=== PATIENT | female | born 1965 | race Caucasian/White ===

== ENCOUNTER 2020-03-08 16:12 | Emergency (ER) | payer MEDICAID ==
[~2020-03-08] VITALS: Ht 175.3 cm; Wt 68.0 kg
[2020-03-08 16:22] VITALS: BP 152/96
[2020-03-08] MEDS ORDERED: LIDOCAINE 1%-EPI 1:100,000 20 ML VIAL ONE (17:05)
--- NOTE | 2020-03-08 18:05 | NUR ---
Patient discharged to home in stable condition. Written and verbal after care instructions given. Patient verbalizes understanding of instruction.
== END 2020-03-08 18:08 | disposition home or self-care (01) ==
LOC: ER 16:12
DX: S90.852A Superficial foreign body, left foot, initial encounter (principal); J45.909 Unspecified asthma, uncomplicated; W45.8XXA Other foreign body or object entering through skin, initial encounter; Y93.89 Activity, other specified; Y92.89 Other specified places as the place of occurrence of the external cause; Y99.8 Other external cause status
CPT/HCPCS: 10120; 73630; 99285; J3490

== ENCOUNTER 2020-10-29 12:24 | Emergency (ER) | payer MEDICAID ==
[~2020-10-29] VITALS: Ht 170.2 cm; Wt 74.8 kg
--- NOTE | 2020-10-29 13:18 | NUR ---
55 years old female alert oriented x4 walking to er c/o chest pain radiates to left shoulder back, non diaphoretic, no nausea, vomiting, reports poor appetite, place on monitor technician vital stable no acute distress.
[2020-10-29] MEDS ORDERED: KETOROLAC TROMETHAMINE 15 MG/ML VIAL ONE (13:40)
[2020-10-29 13:54] LABS: BASOPHILS % (AUTO) 0.4 % (0.0-2.0); EOSINOPHILS % (AUTO) 2.6 % (0.0-6.0); HEMATOCRIT 41 % (33-45); LYMPHOCYTES # (AUTO) 0.9 /CMM (0.8-4.8); LYMPHOCYTES % (AUTO) 13.7 % (20.0-44.0); MEAN CORPUSCULAR HGB CONC 34 g/dl (31.0-36.0); MEAN CORPUSCULAR VOLUME 96 fL (82-100); MONOCYTES # (AUTO) 0.5 /CMM (0.1-1.30); MONOCYTES % (AUTO) 8.5 % (2.0-12.0); NEUTROPHILS # (AUTO) 4.7 /CMM (1.8-8.9); NEUTROPHILS % (AUTO) 74.8 % (43.0-81.0); PLATELET COUNT (AUTO) 273 /CMM (150-450); WHITE BLOOD COUNT (AUTO) 6.3 K/uL (4.3-11.0)
[2020-10-29] MEDS ORDERED: LORAZEPAM INJ 2 MG/ML VIAL ONE (13:56)
[2020-10-29] MEDS ORDERED: IV NS 0.9% 1,000 ML BAG IV ONE (14:00)
[2020-10-29] MEDS ORDERED: KETOROLAC TROMETHAMINE INJ 30 MG/ML VIAL IV ONE (14:00)
[2020-10-29] MEDS ORDERED: LORAZEPAM INJ 2 MG/ML VIAL IV ONE (14:00)
[2020-10-29 14:02] LABS: CALCIUM, SERUM 9.3 mg/dL (8.5-10.1); CARBON DIOXIDE 28 mmol/L (21-32); CHLORIDE 102 mmol/L (98-107); GLUCOSE 130 mg/dL (74-106); POTASSIUM 3.6 mmol/L (3.5-5.1); SODIUM SERUM 138 mmol/L (136-145); UREA NITROGEN, BLOOD 14 mg/dL (7-18)
[2020-10-29 14:08] LABS: ALANINE AMINOTRANSFERASE 63 U/L (12-78); ALBUMIN 3.9 g/dL (3.4-5.0); ALKALINE PHOSPHATASE 88 U/L (46-116); ASPARTATE AMINOTRANSFERASE 58 U/L (15-37); BILIRUBIN,DIRECT 0.1 mg/dL (0.0-0.2); BILIRUBIN,TOTAL 0.6 mg/dL (0.2-1.0); LIPASE 59 U/L (73-393); TOTAL PROTEIN, SERUM 7.8 g/dL (6.4-8.2)
--- NOTE | 2020-10-29 15:01 | NUR ---
PATIENT A/OX4, AMBULATORY WITH STEADY GAIT, BREATHING EVEN AND UNLABORED, NO SOB NOTED. DENIES PAIN AT THIS TIME. IV removed. Catheter intact and site benign. Pressure and 4x4 applied to site. No bleeding noted.Patient discharged to home in stable condition. Written and verbal after care instructions given. Patient verbalizes understanding of instruction.
[2020-10-29 15:03] VITALS: BP 132/81
== END 2020-10-29 15:03 | disposition home or self-care (01) ==
LOC: ER 12:28
DX: R07.89 Other chest pain (principal); J45.909 Unspecified asthma, uncomplicated
CPT/HCPCS: 36415; 71045; 80048; 80076; 80320; 83690; 84484; 85025; 93005; 96361; 96374; 96375; 99285; J1885; J2060; J7030; G0480

== ENCOUNTER 2020-11-02 21:17 | Emergency (ER) | payer MEDICAID ==
[~2020-11-02] VITALS: Ht 175.3 cm; Wt 67.6 kg
[2020-11-02] MEDS ORDERED: HYDROCODONE/APAP 10/325MG TABLET PO ONE (22:30)
--- NOTE | 2020-11-02 22:30 | NUR ---
BIBS FOR C/O L UNDER BREAST AND BACK PAIN X 6 DAYS TO ER BED 11
[2020-11-02] MEDS ORDERED: HYDROCODONE/APAP 10/325MG TABLET ONE (22:43)
[2020-11-02] MEDS ORDERED: TRAM50TA2 PO (23:32)
[2020-11-03 00:29] VITALS: BP 126/76
--- NOTE | 2020-11-03 00:29 | NUR ---
Patient discharged to home in stable condition. Written and verbal after care instructions given. Patient verbalizes understanding of instruction.
== END 2020-11-03 00:30 | disposition home or self-care (01) ==
LOC: ER 21:20
DX: M54.10 Radiculopathy, site unspecified (principal); J45.909 Unspecified asthma, uncomplicated
CPT/HCPCS: 72074-TC

== ENCOUNTER 2021-09-16 23:06 | Inpatient (IN) | payer MEDICAID ==
[~2021-09-16] VITALS: Ht 175.3 cm; Wt 65.8 kg
[~2021-09-16 23:06] MED LIST: TRAM50TA2 PO
[2021-09-16] MEDS ORDERED: methylPREDNISolone SOD SUCC 125 MG/2ML VIAL ONE (23:10)
[2021-09-16] MEDS ORDERED: EPINEPHRINE (1:1000) 1 MG/ML AMPUL ONE (23:10)
[2021-09-16] MEDS ORDERED: Magnesium 1GM/D5W 100ML PREMIX 200 ML IV ONE ×2 (23:10→23:30)
[2021-09-16] MEDS ORDERED: ALBUTEROL FS 2.5 MG/3 ML VIAL.NEB ONE (23:11)
[2021-09-16] MEDS ORDERED: IPRATROPIUM NEB FS 0.5 MG/2.5 ML AMPUL.NEB ONE (23:11)
--- NOTE | 2021-09-16 23:12 | NUR ---
BIBRA78. ASTHMA EXACERBATION X 1 WEEK. SATTING 86% ON RA. GIVEN ALBUTEROL 5MG AND EPI0.5 IM BY EMS. ON CPAP SATTING @ 97%. PATIENT IN BED 05 ON MONITOR AND POX, AWAITING MD ALVARADO.
--- NOTE | 2021-09-16 23:13 | NUR ---
PATIENT ARRIVED WITH LINE ESTABLISHED AT LEFT HAND 20G INFUSING WELL.
--- NOTE | 2021-09-16 23:15 | NUR ---
RT @ [facility]
--- NOTE | 2021-09-16 23:16 | NUR ---
BLOOD AND CULTURES COLLECTED AND SENT TO LAB
--- NOTE | 2021-09-16 23:25 | NUR ---
COVID SWAB DONE AND SENT TO LAB
[2021-09-16 23:30] LABS: BASOPHILS # (AUTO) 0.1 K/uL (0.0-0.2); BASOPHILS % (AUTO) 0.6 % (0.0-2.0); HEMATOCRIT 45 % (33-45); HEMOGLOBIN 14.7 g/dL (11.5-14.8); LYMPHOCYTES # (AUTO) 3.4 K/uL (0.8-4.8); LYMPHOCYTES % (AUTO) 26.3 % (20.0-44.0); MEAN CORPUSCULAR HGB CONC 33 g/dl (31.0-36.0); MEAN CORPUSCULAR VOLUME 90 fL (82-100); MONOCYTES # (AUTO) 1.2 K/uL (0.1-1.30); MONOCYTES % (AUTO) 8.9 % (2.0-12.0); NEUTROPHILS # (AUTO) 7.6 K/uL (1.8-8.9); NEUTROPHILS % (AUTO) 59.2 % (43.0-81.0); PLATELET COUNT (AUTO) 348 K/uL (150-450); RED BLOOD CELL COUNT(AUTO) 4.98 MIL/uL (4.0-5.2); WHITE BLOOD COUNT (AUTO) 12.9 K/uL (4.3-11.0)
[2021-09-16] MEDS ORDERED: ALBUTEROL FS 2.5 MG/3 ML VIAL.NEB CONTNEB ONE (23:30)
[2021-09-16] MEDS ORDERED: methylPREDNISolone SOD SUCC 125 MG/2ML VIAL IV ONE (23:30)
[2021-09-16] MEDS ORDERED: IPRATROPIUM NEB FS 0.5 MG/2.5 ML AMPUL.NEB NEB ONE (23:30)
[2021-09-16] MEDS ORDERED: EPINEPHRINE (1:1000) 1 MG/ML AMPUL SUBCUT ONE (23:30)
[2021-09-16] MEDS ORDERED: TERBUTALINE SULFATE 1 MG/ML VIAL SQ ONE (23:30)
--- NOTE | 2021-09-16 23:45 | NUR ---
Beltran griffith in [facility] - 09/16/21 at 2346 by RODY PATIENT ARRIVED WITH A LINE ESTABLISHED AT L HAND 18G INFUSING WELL
--- NOTE | 2021-09-16 23:49 | NUR ---
PATIENT SATTING AT 100% MD AWARE RT @ BEDSIDE
[2021-09-16 23:58] LABS: ALANINE AMINOTRANSFERASE 22 U/L (12-78); ALBUMIN 4.3 g/dL (3.4-5.0); ALKALINE PHOSPHATASE 109 U/L (46-116); ASPARTATE AMINOTRANSFERASE 14 U/L (15-37); BILIRUBIN,DIRECT 0.1 mg/dL (0.0-0.2); BILIRUBIN,TOTAL 0.4 mg/dL (0.2-1.0); CALCIUM, SERUM 9.5 mg/dL (8.5-10.1); CARBON DIOXIDE 30 mmol/L (21-32); CHLORIDE 104 mmol/L (98-107); GLUCOSE 159 mg/dL (74-106); POTASSIUM 5.3 mmol/L (3.5-5.1); SODIUM SERUM 140 mmol/L (136-145); TOTAL PROTEIN, SERUM 8.1 g/dL (6.4-8.2); UREA NITROGEN, BLOOD 17 mg/dL (7-18)
[2021-09-17] VITALS (25 sets, daily range): BP systolic 77–114; BP diastolic 50–79
--- NOTE | 2021-09-17 00:16 | NUR ---
MINDY SOMMERS HOSPITALIST @ BEDSIDE
[2021-09-17] MEDS ORDERED: ACETAMINOPHEN 325 MG TABLET PO PRN (00:30)
[2021-09-17] MEDS ORDERED: ONDANSETRON HCL/PF 4 MG/2 ML VIAL IVP PRN (00:30)
[2021-09-17] MEDS ORDERED: Z GUARD REMEDY 4 OZ OINT TP PRN (00:30)
[2021-09-17] MEDS ORDERED: ALBUTEROL FS 2.5 MG/3 ML VIAL.NEB NEB PRN (00:30)
[2021-09-17] MEDS ORDERED: MAGNESIUM HYDROXIDE 30 ML UDC PO PRN (00:30)
[2021-09-17] MEDS ORDERED: HYDROCODONE/APAP 5/325MG TABLET PO PRN (00:30)
[2021-09-17] MEDS ORDERED: TERBUTALINE SULFATE 1 MG/ML VIAL ONE (00:30)
[2021-09-17] MEDS ORDERED: MAG HYDROX/AL HYDROX/SIMETH 30 ML UDC PO PRN (00:30)
[2021-09-17] MEDS ORDERED: IV NS 0.9% 1,000 ML IV PRN (00:30)
[2021-09-17] MEDS ORDERED: IPRATROPIUM NEB FS 0.5 MG/2.5 ML AMPUL.NEB NEB PRN (00:30)
[2021-09-17] MEDS ORDERED: MORPHINE SULFATE INJ 2 MG/ML DISP.SYRIN IV PRN (00:30)
[2021-09-17 00:36] LABS: ABG BASE EXCESS -8.1 mmol/L; ABG PCO2 49.2 mmHg (35.0-45.0); ABG PH 7.222 (7.350-7.450); ABG PO2 68.8 mmHg (75.0-100.0); COHb 0.2 % (0.5-1.5); MetHb 0.3 % (0.0-1.5); O2Hb 90.4 % (94.0-97.0); SITE, ABG Right Radial; VENT MODE, BG RA
--- NOTE | 2021-09-17 01:14 | NUR ---
UPDATED FAMILY ON PATIENTS CONDITION.
--- NOTE | 2021-09-17 02:04 | NUR ---
PATIENT RESTING COMFORTABLY NO COMPLAINTS AT THIS TIME.
--- NOTE | 2021-09-17 02:46 | NUR ---
REPORT GIVEN TO YESSI GUERRERO
--- NOTE | 2021-09-17 03:00 | NUR ---
ICU/WORKDAY CONSULTANT RECIEVED REPORT FROM ER NURSE
--- NOTE | 2021-09-17 03:20 | NUR ---
PATIENT TRANSFERRED UNDER ACLS.
--- NOTE | 2021-09-17 03:30 | NUR ---
ICU/INK MAKER PT WAS ABLE TO AMBULATE TO BED. PT PLACED ON MONITOR. CALL LIGHT WITHIN REACH
[2021-09-17] MEDS ORDERED: IV NS 0.9% 500 ML IV ONE ×3 (04:00→04:30)
--- NOTE | 2021-09-17 04:05 | NUR ---
ICU/WORKPLACE TRAINER AND ASSESSOR MINDY MADE AWARE OF LOW BP, SAID TO BOLUS PT 1 LITER. NO OTHER MEDICATION AT THIS TIME. SAID PT WAS DEHYDRATED. CHARGE NURSE MADE AWARE.
[2021-09-17] MEDS: ENOXAPARIN SODIUM 40 MG/0.4 ML DISP.SYRIN SQ SCH ×2 (04:15→21:15)
[2021-09-17] MEDS: IV NS 0.9% 1,000 ML IV PRN ×2 (04:27→15:39)
--- NOTE | 2021-09-17 04:38 | NUR ---
ICU/SUPERVISOR BUFFING AND PASTING MRSA NARES DONE, SENT TO LAB
[2021-09-17] MEDS ORDERED: methylPREDNISolone SOD SUCC 125 MG/2ML VIAL IV SCH ×2 (05:00→08:00)
--- NOTE | 2021-09-17 05:10 | NUR ---
ICU/DIRECTOR OF MIDWIFERY/STAFF MIDWIFE PT GOT STEROIDS AT MIDNIGHT, PHARMACY CALLED TO HAVE THIS RESCHEDULE TO MATCH THE TIME ORDERED BY MD WHICH WOULD BE AT 0800.
--- NOTE | 2021-09-17 06:00 | NUR ---
ICU/MANAGER ATHLETICS BLOOD PRESSURE SLOWLY COMING UP.
--- NOTE | 2021-09-17 07:30 | NUR ---
OPENING NOTE: REPORT RECEIVED FROM YOLANDA LINO. ORDERS AND LABS REVIEWED DURING REPORT. PT ALERT OX4. C/O SOB, 2L NC SATTING 98%. PT ABLE TO MOVE INDEPENEDENTLY IN BED. NS INFUSING PER MD ORDERS AT 100ML/HR WITHOUT DIFFICULTY. PT CHECKED ON HOURLY AND PRN BY NURSING STAFF.
[2021-09-17] MEDS: IPRATROPIUM NEB FS 0.5 MG/2.5 ML AMPUL.NEB NEB SCH ×5 (07:41→23:19)
[2021-09-17] MEDS: ALBUTEROL FS 2.5 MG/0.5 ML VIAL.NEB NEB SCH ×5 (07:41→23:19)
[2021-09-17] MEDS: PANTOPRAZOLE 40 MG TABLET.DR PO SCH (07:51)
[2021-09-17] MEDS ORDERED: ALBU90AE2 INH (07:55)
[2021-09-17] MEDS ORDERED: MONT10TA22 PO (07:55)
[2021-09-17] MEDS ORDERED: FLUT12AE3 INH (08:41)
[2021-09-17 09:18] LABS: BASOPHILS % (AUTO) 0.1 % (0.0-2.0); EOSINOPHILS % (AUTO) 0.1 % (0.0-6.0); HEMATOCRIT 36 % (33-45); HEMOGLOBIN 12.2 g/dL (11.5-14.8); LYMPHOCYTES # (AUTO) 0.2 K/uL (0.8-4.8); LYMPHOCYTES % (AUTO) 3.2 % (20.0-44.0); MEAN CORPUSCULAR HGB CONC 34 g/dl (31.0-36.0); MEAN CORPUSCULAR VOLUME 89 fL (82-100); MONOCYTES # (AUTO) 0.1 K/uL (0.1-1.30); MONOCYTES % (AUTO) 1.4 % (2.0-12.0); NEUTROPHILS % (AUTO) 95.2 % (43.0-81.0); PLATELET COUNT (AUTO) 211 K/uL (150-450); RED BLOOD CELL COUNT(AUTO) 4.09 MIL/uL (4.0-5.2); WHITE BLOOD COUNT (AUTO) 5.2 K/uL (4.3-11.0)
[2021-09-17 09:36] LABS: ALBUMIN 3.2 g/dL (3.4-5.0); BILIRUBIN,TOTAL 0.3 mg/dL (0.2-1.0); CALCIUM, SERUM 8.2 mg/dL (8.5-10.1); CREATININE 1.2 mg/dL (0.6-1.3); POTASSIUM 4.3 mmol/L (3.5-5.1); TOTAL PROTEIN, SERUM 6.7 g/dL (6.4-8.2)
--- NOTE | 2021-09-17 09:43 | NUR ---
CRITICAL LAB RESULT RECEIVED: LACTIC ACID 5.2. DR SHAH NOTIFIED.
[2021-09-17 10:36] LABS: ABG BASE EXCESS -3.6 mmol/L; ABG OXYGEN SATURATION 94.2 % (92.0-98.5); ABG PCO2 34.2 mmHg (35.0-45.0); ABG PH 7.395 (7.350-7.450); ABG PO2 69.6 mmHg (75.0-100.0); AaDO2 89.7 mmHg; COHb 0.5 % (0.5-1.5); MetHb 0.2 % (0.0-1.5); O2Hb 93.5 % (94.0-97.0); SITE, ABG Right Radial; VENT MODE, BG N/ C
[2021-09-17] MEDS: LEVOFLOXACIN (250MG) 250 MG TABLET PO SCH (11:45)
[2021-09-17] MEDS: ALBUTEROL HALF STRENGTH 1.25 MG/3 ML VIAL.NEB NEB PRN ×2 (15:31→18:05)
[2021-09-17] MEDS: methylPREDNISolone SOD SUCC 125 MG/2ML VIAL IV SCH ×2 (16:06→23:16)
--- NOTE | 2021-09-17 16:25 | NUR ---
MS RN NOTES: RECEIVED PT FROM ICU AWAKE, ALERT ORIENTED X 4,CONTINUE TO SAY SHE HAS HARD TIME TO BREATH, O2 SAT 95%, hr 103, ON OXYGEN VIA NASAL CANNULA AT 2L/MIN, SKIN INTACT, DENIED ANY PAIN OR DISCOMFORT, BED IN LOW AND LOCKED POSITION, R HAND iV LINE INTACT RUNNING WITH NORMAL SALINE AT 100 ML/HR, WILL MONITOR THE PT
--- NOTE | 2021-09-17 16:25 | NUR ---
PT TRANSFERRED TO M/S ROOM 119-1 AT 1625 VIA BED, ACCOMPANIED BY M/S RN AND OUTBOUND SUPERVISOR WITH ALL BELONGINGS AND MEDICATIONS. BEDSIDE REPORT GIVEN IN ICU.
[2021-09-17] MEDS: ALPRAZOLAM 0.25 MG TABLET PO PRN (17:50)
--- NOTE | 2021-09-17 18:00 | NUR ---
RN NOTES: PT CONTINUE TO VERBALIZE SHE FEELS ANXIOUS AND REQUEST MEDICINE TO HELP HER ANXIETY WHICH WILL HELP HER BREATHING WELL, CALLED DR FRENCH WITH ORDER OF XANAX NEEDED EVERY 8 HOURS, ORDER NOTED AND CARRIED OUT, DOSE GIVEN ORDERED
--- NOTE | 2021-09-17 19:33 | NUR ---
RN CLOSING NOTES: PT IN BED AWAKE, ALERT, ORIENTED X 4, CONTINUE O2 AT 2L/MIN,NO PAIN OR DICOMFORT,CONTINUE IV FLUID ORDERED,BED KEPT IN LOW AND LOCKED POSITION WILL CONTINUE TO MONITOR
--- NOTE | 2021-09-17 20:00 | NUR ---
RN NOTES ASTHMA EXACERBATION, RECEIVED PATIENT IN BED, HIGH FOWLERS, ALERT/ORIENTED X4, ANXIOUS, REPORTED SHORTNESS OF BREATH, EXPIRATORY WHEEZING, 2LPM VIA NC, SPO2 96%, GENERALIZED WEAKNESS, CONTINENT OF BOWEL AND BLADDER, PREFERS BSC. KEPT SAFE, WILL CONTINUE TO MONITOR.
[2021-09-17] MEDS: MONTELUKAST SODIUM (10MG) 10 MG TABLET PO SCH (21:16)
--- NOTE | 2021-09-17 23:50 | NUR ---
PATIENT HAS INSPIRATORY AND EXPIRATORY WHEEZING, 3LPM VIA NC, SPO2 96%, BREATHING TREATMENT Q4HRS AND STEROIDS, COMPLAINING OF DIFFICULTY AND TIGHT BREATHING, NOTIFIED HOME ENERGY INSPECTOR [place], NO NEW ORDER, WILL CONTINUE TO MONITOR PATIENT.
[2021-09-18] MEDS: ALPRAZOLAM 0.25 MG TABLET PO PRN ×2 (02:17→22:08)
[2021-09-18] MEDS: ALBUTEROL FS 2.5 MG/0.5 ML VIAL.NEB NEB SCH ×7 (02:47→21:05)
[2021-09-18] MEDS: IPRATROPIUM NEB FS 0.5 MG/2.5 ML AMPUL.NEB NEB SCH ×7 (02:47→21:05)
[2021-09-18 04:00] VITALS: BP 92/65
[2021-09-18] MEDS: IV NS 0.9% 1,000 ML IV PRN ×2 (05:20→15:28)
--- NOTE | 2021-09-18 06:35 | NUR ---
ALERT/ORIENTED X4, 2LPM VIA NC, SPO2 96%. ASTHMA EXACERBATION, BREATHING TREATMENT Q4HRS, VENTOLIN PRN, XANAX FOR ANXIETY, CONTINUE SOLU-MEDROL Q8HRS. PER DR. FRENCH WILL NEED PULMONARY FUNCTION TEST, RESPIRATORY ALLERGY PANEL, CHEST CT, 6-MINUTE WALK OUTPATIENT.
[2021-09-18 07:08] LABS: HEMATOCRIT 35 % (33-45); HEMOGLOBIN 12.1 g/dL (11.5-14.8); LYMPHOCYTES # (AUTO) 0.5 K/uL (0.8-4.8); LYMPHOCYTES % (AUTO) 4.4 % (20.0-44.0); MEAN CORPUSCULAR HGB CONC 34 g/dl (31.0-36.0); MEAN CORPUSCULAR VOLUME 89 fL (82-100); MONOCYTES # (AUTO) 0.3 K/uL (0.1-1.30); MONOCYTES % (AUTO) 2.6 % (2.0-12.0); NEUTROPHILS # (AUTO) 9.6 K/uL (1.8-8.9); PLATELET COUNT (AUTO) 237 K/uL (150-450); RED BLOOD CELL COUNT(AUTO) 3.97 MIL/uL (4.0-5.2); WHITE BLOOD COUNT (AUTO) 10.3 K/uL (4.3-11.0)
--- NOTE | 2021-09-18 07:30 | NUR ---
MS RN AM NOTES PT IN BED, AO X 4, ON 2LPM VIA NC, O2 SAT 97%, MILD ANXIETY, NO DISTRESS, RESPIRATION UNLABORED, HIGH FOWLERS, WHEEZING BILAT LUNG FIELD, LEFT WRIST 18G WITH NS AT 100 ML/HR INFUSING WELL, RFA 18G FLUSHES WELL, BOTH SITES CLEAR. USES BSC, UNABLE TO TOLERATE LONG STANDING AND AMBULATION. SOFT DIET. POC DISCUSSED, VERBALIZED UNDERSTANDING. SAFETY MEASURES IN PLACE. BED LOW LOCKED. CALL LIGHT WITHIN REACH. WILL CONT TO MONITOR
[2021-09-18 07:35] LABS: ALBUMIN 3.2 g/dL (3.4-5.0); BILIRUBIN,TOTAL 0.2 mg/dL (0.2-1.0); CALCIUM, SERUM 8.6 mg/dL (8.5-10.1); CREATININE 0.8 mg/dL (0.6-1.3); MAGNESIUM 2.2 mg/dL (1.8-2.4); PHOSPHORUS 3.2 mg/dL (2.5-4.9); POTASSIUM 4.2 mmol/L (3.5-5.1); TOTAL PROTEIN, SERUM 6.5 g/dL (6.4-8.2)
[2021-09-18 07:40] LABS: THYROID STIMULATING HORMONE 0.185 uIU/mL (0.358-3.74)
[2021-09-18] MEDS: PANTOPRAZOLE 40 MG TABLET.DR PO SCH (07:55)
[2021-09-18] MEDS: methylPREDNISolone SOD SUCC 125 MG/2ML VIAL IV SCH ×3 (07:55→23:42)
[2021-09-18 08:00] VITALS: BP 104/72
--- NOTE | 2021-09-18 09:30 | NUR ---
RN NOTES DUE MEDS GIVEN
[2021-09-18] MEDS: LEVOFLOXACIN (250MG) 250 MG TABLET PO SCH (11:45)
--- NOTE | 2021-09-18 13:34 | NUR ---
RN NOTES BLOOD CULTURE RESULT RELAYED TO DR. SHAH - GRAM + COCCI IN CLUSTERS. NNO
[2021-09-18 16:00] VITALS: BP 112/73
--- NOTE | 2021-09-18 18:40 | NUR ---
MS RN CLOSING NOTES PT IN BED, RESTING AO X 4, ON 2LPM VIA NC, O2 SAT 97%, NO DISTRESS, RESPIRATION UNLABORED, HIGH FOWLERS, WHEEZING BILAT LUNG FIELD, LEFT WRIST 18G WITH NS AT 100 ML/HR INFUSING WELL, RFA 18G FLUSHES WELL, BOTH SITES CLEAR. USES BSC, UNABLE TO TOLERATE LONG STANDING AND AMBULATION. SOFT DIET. SAFETY MEASURES IN PLACE. BED LOW LOCKED. ALL NEEDS MET FOR NOW. PM CARE DONE EARLIER. CALL LIGHT WITHIN REACH. WILL ENDORSE TO NEXT SHIFT FOR JOSS.
[2021-09-18 20:00] VITALS: BP 125/70
--- NOTE | 2021-09-18 20:00 | NUR ---
RN NOTE PT AWAKE, ALERT ORIENTED X4. ON HIGH FOWLERS WITH O2 VIA NC AT 2L. PT COMPLAINED OF MILD SHORTNESS OF BREATH, NOT IN ANY DISTRESS. O2 SAT AT 97%. NS RUNNING AT 100ML/HR, INFUSING WELL ON L. WRIST. WILL CONTINUE TO MONITOR. CALL LIGHT WITHIN REACH.
--- NOTE | 2021-09-18 21:20 | NUR ---
RN NOTE PT RECEIVING BREATHING TX, WITH RT AT BEDSIDE. COMPLAINED OF SHORTNESS OF BREATH, SITTING UPRIGHT, TACHYPNEIC, RELAXATION & DEEP BREATHING TECHNIQUES GIVEN. BREATHING IMPROVED. NO CHANGES IN LOC. WILL CONTINUE TO MONITOR.
[2021-09-18] MEDS: MONTELUKAST SODIUM (10MG) 10 MG TABLET PO SCH (21:46)
[2021-09-18] MEDS: ENOXAPARIN SODIUM 40 MG/0.4 ML DISP.SYRIN SQ SCH (21:47)
--- NOTE | 2021-09-18 22:53 | NUR ---
RT CHECKED ON PT HR 97, SPO2 97. NO RESPIRATORY DISTRESS AT THIS TIME. PT ASKED FO NEB TX IN ONE HOUR.
--- NOTE | 2021-09-18 23:07 | NUR ---
RN NOTE PT REQUESTED FOR SLEEPING MEDICATION. NOTIFIED SAW RUNNER PRESLEY SOMMERS, ORDERED RESTORIL 15MG PO QHS PRN SLEEP.
[2021-09-19] VITALS (8 sets, daily range): BP systolic 101–148; BP diastolic 62–92
[2021-09-19] MEDS: ALBUTEROL FS 2.5 MG/0.5 ML VIAL.NEB NEB SCH ×8 (00:05→20:47)
[2021-09-19] MEDS: IPRATROPIUM NEB FS 0.5 MG/2.5 ML AMPUL.NEB NEB SCH ×8 (00:05→20:47)
--- NOTE | 2021-09-19 00:51 | NUR ---
RN NOTE PT SLEEPING WELL AT THIS TIME. NO SLEEPING MED GIVEN.
[2021-09-19] MEDS: IV NS 0.9% 1,000 ML IV PRN ×2 (01:48→12:08)
--- NOTE | 2021-09-19 06:51 | NUR ---
RN NOTE PT AWAKE, TOLERATES O2 AT 2L. NO DISTRESS NOTED. DENIES SOB OR ANY PAIN AT THIS TIME. PT STATED SHE FEELS A LITTLE BIT BETTER. NO CHANGES IN LOC NOTED. CONTINUE ON IVFLUID OF NS AT 100ML/HR, INFUSING WELL. NO S/SX OF INFILTRATION. PT CONTINENT, USES BEDSIDE COMMODE. COMPLAINED OF CONSTIPATION, MOM WAS GIVEN, NO BM AT THIS TIME. WILL ENDORSE TO NEXT SHIFT NURSE FOR JOSS.
[2021-09-19 07:01] LABS: HEMATOCRIT 35 % (33-45); HEMOGLOBIN 12.1 g/dL (11.5-14.8); LYMPHOCYTES # (AUTO) 0.3 K/uL (0.8-4.8); LYMPHOCYTES % (AUTO) 2.4 % (20.0-44.0); MEAN CORPUSCULAR HGB CONC 34 g/dl (31.0-36.0); MEAN CORPUSCULAR VOLUME 89 fL (82-100); MONOCYTES # (AUTO) 0.2 K/uL (0.1-1.30); MONOCYTES % (AUTO) 1.8 % (2.0-12.0); NEUTROPHILS # (AUTO) 12.1 K/uL (1.8-8.9); NEUTROPHILS % (AUTO) 95.8 % (43.0-81.0); PLATELET COUNT (AUTO) 234 K/uL (150-450); RED BLOOD CELL COUNT(AUTO) 3.98 MIL/uL (4.0-5.2); WHITE BLOOD COUNT (AUTO) 12.6 K/uL (4.3-11.0)
--- NOTE | 2021-09-19 07:30 | NUR ---
MS RN AM NOTES PT IN BED, AO X 4, ON 2LPM VIA NC, O2 SAT 96%, MILD ANXIETY, NO DISTRESS, RESPIRATION UNLABORED, HIGH FOWLERS, WHEEZING BILAT LUNG FIELD, LEFT WRIST 18G WITH NS AT 100 ML/HR INFUSING WELL, RAC 18G FLUSHES WELL, BOTH SITES CLEAR. USES BSC, UNABLE TO TOLERATE LONG STANDING AND AMBULATION. SOFT DIET. POC DISCUSSED, VERBALIZED UNDERSTANDING. SAFETY MEASURES IN PLACE. BED LOW LOCKED. CALL LIGHT WITHIN REACH. WILL CONT TO MONITOR
[2021-09-19 07:37] LABS: BILIRUBIN,TOTAL 0.2 mg/dL (0.2-1.0); CALCIUM, SERUM 8.3 mg/dL (8.5-10.1); CREATININE 0.8 mg/dL (0.6-1.3)
[2021-09-19] MEDS: PANTOPRAZOLE 40 MG TABLET.DR PO SCH (07:57)
[2021-09-19] MEDS: methylPREDNISolone SOD SUCC 125 MG/2ML VIAL IV SCH ×3 (08:07→21:20)
--- NOTE | 2021-09-19 09:30 | NUR ---
RN NOTES DUE MEDS GIVEN
[2021-09-19 09:37] LABS: ALBUMIN 3.2 g/dL (3.4-5.0); POTASSIUM 3.8 mmol/L (3.5-5.1); TOTAL PROTEIN, SERUM 6.6 g/dL (6.4-8.2)
[2021-09-19] MEDS: LEVOFLOXACIN (250MG) 250 MG TABLET PO SCH (11:06)
--- NOTE | 2021-09-19 17:18 | NUR ---
YESSI TARIQ PATIENT ANXIOUS AND STATED SHE CANT BREATH ON 2L O2 NASAL CANULA O2 SAT AT 95%. DR. SHAH NOTIFIED PRIOR TO THIS AND ORDERED TO CONTINUE WITH SOLUMEDROL 125MG IV Q8 HOURS. LAST GIVEN WAS AT 1711.
--- NOTE | 2021-09-19 17:24 | NUR ---
RN NOTES PATIENT IN DISTRESS, LABORED BREATHING. PLACED ON NRM 15L. O2 SAT AT 96% BUT IS TACHYPNEIC AND DIAPHORETIC. RAPID RESPONSE ACTIVATED.
--- NOTE | 2021-09-19 18:00 | NUR ---
RAPID RESPONSE: 1724 - RAPID RESPONSE ACTIVATED, BP 150/88. HR 150s, O2 SAT 96% ON NRM 15L O2 1726 - RAPID RESPONSE TEAM ON SITE. [facility] ICU CN, GUILLERMO CIRO CN, MARYJANE HARPER RN, GRACIE RN, ABEL RN, JACOBY RT, SILVIA RT, GOOD RT, JENNIFER RT - O2 SAT 99%, HR 149. 1728 - BLOOD SUGAR 174 1730 - INFORMED DR. FRENCH AND DR. SHAH 1733 - BREATHING TREATMENT + NRM 1734 - O2 SAT 99%, ABG ORDERED STAT 1738 - ABG TAKEN HR 148 1742 - DR SHAH ACKNOWLEDGED AND AWAITING FOR ABG RESULT, HR 153 1745 - DR. FRENCH ORDERED FOR BIPAP 174 - BIPAP IN ROOM 175 - BIPAP + BREATHING TREATMENT IN PLACE. 175 - ABG RESULT FORWARDED TO DR. SHAH AND DR. FRENCH 175 - ORDERED TO GO TO ICU. END OF RAPID RESULT. - BP 148/92 O2 SAT 100% TEMP 97.3 RR 24
--- NOTE | 2021-09-19 18:10 | NUR ---
PT IS AWAKE AND FOLLOW COMMANDS PLACED INTO BIPAP DUE TO INCREASED WORK OF BREATHING. BIPAP SETTINGS BELOW ORDERED: 18 IPAP 5 EPAP RATE 16 FIO2 30% BREATH SOUNDS DIMINISHED TO WHEEZING BILATERAL. BREATHING TREATMENT GIVEN VIA INLINE. SPO2 100% RR 32 BPM HR 92 bpm Addendum: 09/19/21 at 1815 by JENNIFER BELTRAN RT Amended: Links added.
--- NOTE | 2021-09-19 19:05 | NUR ---
RT NOTE PT RECEIVED ON BIPAP WITH CURRENT SETTINGS OF 18/5, 16, 30%. PT SEEMS TO BE TOLERATING WELL. NO DISTRESS NOTED AT THIS TIME. WILL DRAW ABG @ 1999. WILL CONTINUE TO MONITOR CLOSELY.
--- NOTE | 2021-09-19 19:12 | NUR ---
RN NOTES PATIENT TRANSFERRED T0 ICU 259. REPORT GIVEN TO ED FUNERAL HOME ASSOCIATE.
[2021-09-19 20:14] LABS: ABG BASE EXCESS -2.2 mmol/L; ABG PCO2 40.2 mmHg (35.0-45.0); ABG PH 7.372 (7.350-7.450); MetHb 0.4 % (0.0-1.5); O2Hb 97.2 % (94.0-97.0); SITE, ABG Left Brachial
--- NOTE | 2021-09-19 20:15 | NUR ---
RT NOTE PT REMOVED OFF BIPAP POST ABG RESULTS. SCHEDULER CONVEYOR AWARE. PT PLACED ON 28% NASAL CANNULA. NO RESPIRATORY DISTRESS NOTED AT THIS TIME. WILL MONITOR.
--- NOTE | 2021-09-19 21:10 | NUR ---
RT NOTE PT PLACED BACK ON BIPAP DUE TO INCREASED WOB. WILL CONTINUE TO MONITOR CLOSELY.
[2021-09-19] MEDS: ALPRAZOLAM 0.25 MG TABLET PO PRN (21:21)
[2021-09-19] MEDS: MONTELUKAST SODIUM (10MG) 10 MG TABLET PO SCH (21:21)
[2021-09-19] MEDS: ENOXAPARIN SODIUM 40 MG/0.4 ML DISP.SYRIN SQ SCH (21:21)
[2021-09-19] MEDS: TEMAZEPAM 15 MG CAPSULE PO PRN (22:08)
[2021-09-20] VITALS (24 sets, daily range): BP systolic 93–137; BP diastolic 59–96
[2021-09-20] MEDS: ALBUTEROL FS 2.5 MG/0.5 ML VIAL.NEB NEB SCH ×6 (00:49→15:41)
[2021-09-20] MEDS: IPRATROPIUM NEB FS 0.5 MG/2.5 ML AMPUL.NEB NEB SCH ×8 (00:49→23:07)
[2021-09-20] MEDS: ALPRAZOLAM 0.25 MG TABLET PO PRN ×2 (02:29→11:21)
--- NOTE | 2021-09-20 03:25 | NUR ---
SECRETARY ADMINISTRATIVE ASSISTANT PT IS AWAKE, ALERT, ORIENTED X 3, PLEASANT & COOPERATIVE, BUT VERY ANXIOUS @ TIMES. PT IS ON BIPAP 18/5 -16 30%, TOLERATES WELL. LUNGS SOUND DIMINISHED, BILATERAL WHEEZING. 02 SAT-96-98%. VSS, AFEBRILE, SCOPE-SR-ST. MEDICATED ORDERED. PT REQUESTED TWICE XANAX 0.25 MG PO FOR ANXIETY. URINE OUTPUT ADEQUATE. ASSISTED WITH ADL & BEDSIDE COMMODE. WILL CONTINUE CLOSE MONITORING.
[2021-09-20] MEDS: methylPREDNISolone SOD SUCC 125 MG/2ML VIAL IV SCH ×3 (04:42→21:24)
[2021-09-20] MEDS: IV NS 0.9% 1,000 ML IV PRN ×2 (04:42→14:43)
[2021-09-20 04:51] LABS: ALBUMIN 2.9 g/dL (3.4-5.0); BILIRUBIN,TOTAL 0.2 mg/dL (0.2-1.0); CALCIUM, SERUM 8.3 mg/dL (8.5-10.1); CREATININE 0.8 mg/dL (0.6-1.3); TOTAL PROTEIN, SERUM 6.1 g/dL (6.4-8.2)
--- NOTE | 2021-09-20 07:30 | NUR ---
RN OPENING NOTE PT OBSERVED IN BED SLEEPING. PT IS ON BIPAP WITH ALL PRESCRIBED SETTINGS TOLERATING WELL WITH NO SIGNS OF DISTRESS OR LABORED BREATHING SAT 96%. PT IS A/OX4. IV ACCES L FA AND R AC INFUSING WITH NS @100ML/HR. BED IS LOCKED IN LOWEST POSITION, CALL LIGHT IS WITHIN REACH AND ALL HOSPITAL SAFETY PROTOCOLS ARE IN PLACE WILL CONTINUE TO MONITOR THIS SHIFT.
[2021-09-20] MEDS: PANTOPRAZOLE 40 MG TABLET.DR PO SCH (07:47)
[2021-09-20] MEDS: MONTELUKAST SODIUM (10MG) 10 MG TABLET PO SCH ×2 (08:42→21:30)
[2021-09-20 08:47] LABS: BASOPHILS % (AUTO) 0.1 % (0.0-2.0); HEMATOCRIT 35 % (33-45); HEMOGLOBIN 11.8 g/dL (11.5-14.8); LYMPHOCYTES # (AUTO) 0.4 K/uL (0.8-4.8); LYMPHOCYTES % (AUTO) 4.5 % (20.0-44.0); MEAN CORPUSCULAR HGB CONC 34 g/dl (31.0-36.0); MEAN CORPUSCULAR VOLUME 89 fL (82-100); MONOCYTES # (AUTO) 0.4 K/uL (0.1-1.30); MONOCYTES % (AUTO) 4.6 % (2.0-12.0); NEUTROPHILS # (AUTO) 7.4 K/uL (1.8-8.9); NEUTROPHILS % (AUTO) 90.8 % (43.0-81.0); PLATELET COUNT (AUTO) 219 K/uL (150-450); RED BLOOD CELL COUNT(AUTO) 3.93 MIL/uL (4.0-5.2); WHITE BLOOD COUNT (AUTO) 8.2 K/uL (4.3-11.0)
[2021-09-20 09:02] LABS: ALBUMIN 3.1 g/dL (3.4-5.0); BILIRUBIN,TOTAL 0.3 mg/dL (0.2-1.0); CREATININE 0.8 mg/dL (0.6-1.3); TOTAL PROTEIN, SERUM 6.4 g/dL (6.4-8.2)
[2021-09-20 09:13] LABS: CALCIUM, SERUM 8.3 mg/dL (8.5-10.1)
[2021-09-20] MEDS: LEVOFLOXACIN (250MG) 250 MG TABLET PO SCH (11:21)
--- NOTE | 2021-09-20 18:47 | NUR ---
RN CLOSING NOTE PT IS SITTING UP IN BED WITH HOB >30 DEGREES. PT IS ON NC 3-4L SAT 98% TOLERATING WELL. PT IS A/OX4. IV ACCESS R FA INFUSING WITH NS @100ML/HR. BED IS LOCKED IN LOWEST POSITION, CALL LIGHT IS WITHIN REACH AND ALL HOSPITAL SAFETY PROTOCOLS ARE IN PLACE WILL ENDORSE TO OPERATIONS BOARDMAN NURSE FOR JOSS.
[2021-09-20] MEDS: ALBUTEROL FS 2.5 MG/3 ML VIAL.NEB NEB SCH ×2 (20:06→23:07)
--- NOTE | 2021-09-20 20:30 | NUR ---
ICU/CORPORATION PILOT PT IS HAVING SHORTNESS OF BREATH, SATURATION IS 98%. RT CALLED TO GIVE BREATHING TREATMENT. WILL MONITOR THIS PT.
--- NOTE | 2021-09-20 20:45 | NUR ---
ICU/CHANGE CONSULTANT PT PLACED ON BIPAP, PER PT'S REQUEST. WILL MONITOR THIS PT. BIPAP SETTINGS IS RATE 12, FIO2 30%, 18/5.
[2021-09-20] MEDS: ENOXAPARIN SODIUM 40 MG/0.4 ML DISP.SYRIN SQ SCH (21:25)
--- NOTE | 2021-09-20 22:45 | NUR ---
ICU/SIGNALS INTELLIGENCE SUPERINTENDENT PT APPEARS TO BE RESTING COMFORTABLE WITH BIPAP. WILL CONTINUE TO MONITOR THIS PT.
[2021-09-21] VITALS (24 sets, daily range): BP systolic 109–150; BP diastolic 38–96
[2021-09-21] MEDS: ALBUTEROL FS 2.5 MG/3 ML VIAL.NEB NEB SCH ×8 (02:18→23:45)
[2021-09-21] MEDS: IPRATROPIUM NEB FS 0.5 MG/2.5 ML AMPUL.NEB NEB SCH ×8 (02:18→23:45)
[2021-09-21] MEDS: IV NS 0.9% 1,000 ML IV PRN ×2 (03:14→14:46)
[2021-09-21] MEDS: methylPREDNISolone SOD SUCC 125 MG/2ML VIAL IV SCH ×3 (05:31→21:08)
[2021-09-21 05:44] LABS: ALBUMIN 3.1 g/dL (3.4-5.0); BILIRUBIN,TOTAL 0.3 mg/dL (0.2-1.0); CALCIUM, SERUM 8.5 mg/dL (8.5-10.1); CREATININE 0.9 mg/dL (0.6-1.3); POTASSIUM 4.3 mmol/L (3.5-5.1); TOTAL PROTEIN, SERUM 6.5 g/dL (6.4-8.2)
[2021-09-21 06:04] LABS: EOSINOPHILS % (AUTO) 0.1 % (0.0-6.0); HEMATOCRIT 36 % (33-45); LYMPHOCYTES # (AUTO) 0.3 K/uL (0.8-4.8); LYMPHOCYTES % (AUTO) 5.6 % (20.0-44.0); MEAN CORPUSCULAR HGB CONC 34 g/dl (31.0-36.0); MEAN CORPUSCULAR VOLUME 89 fL (82-100); MONOCYTES # (AUTO) 0.2 K/uL (0.1-1.30); NEUTROPHILS # (AUTO) 4.7 K/uL (1.8-8.9); NEUTROPHILS % (AUTO) 91.3 % (43.0-81.0); PLATELET COUNT (AUTO) 214 K/uL (150-450); RED BLOOD CELL COUNT(AUTO) 4.01 MIL/uL (4.0-5.2); WHITE BLOOD COUNT (AUTO) 5.2 K/uL (4.3-11.0)
--- NOTE | 2021-09-21 08:00 | NUR ---
rn notes Received patient in the bed on bipap, patient awake, getting breathings tx at this time., no acute distress, getting lethargic easily. patient using bedside commode. due medication administered. iv access on right fa intact infusing ns@100ml/hr intact. vss. tolerated breakfast fine self, call light within to reach. will follow up.
[2021-09-21] MEDS: PANTOPRAZOLE 40 MG TABLET.DR PO SCH (08:34)
[2021-09-21] MEDS: MONTELUKAST SODIUM (10MG) 10 MG TABLET PO SCH ×2 (08:37→21:08)
[2021-09-21] MEDS: ALPRAZOLAM 0.25 MG TABLET PO PRN (10:51)
--- NOTE | 2021-09-21 10:52 | NUR ---
RN NOTES PATIENT ANXIOUS, [id number] XANAX 0.25 MG PO PRN PER PATIENT REQUEST. ALSO ADMINISTERED SCHEDULED MEDICATION,. PATIENT ON O2NC 3L. INFUSING NS @100 ML/HR INTACT. ON RIGHT FA. CALL LIGHT WITHIN TO REACH. WILL FOLLOW UP.
[2021-09-21] MEDS: LEVOFLOXACIN (250MG) 250 MG TABLET PO SCH (11:01)
--- NOTE | 2021-09-21 13:30 | NUR ---
rn notes medication were administered for anxiety effective, patient calm. needs attended and anticipated, daughter next to the bed.
--- NOTE | 2021-09-21 18:28 | NUR ---
rn notes patient on O2-2llNC getting breathing treatment. no acute respiratory distress. daughter next to the bed. endorsed oncoming nurse savana.
--- NOTE | 2021-09-21 19:48 | NUR ---
RN NOTE PATIENT ALERT AND ORIENTED X4, ABLE TO MAKE NEEDS KNOWN. ON O2 3L VIA NASAL CANNULA. PATIENT COMPLAINING OF SHORTNESS OF BREATH AND REQUESTING FOR BIPAP, O2 SAT 97%. RT AT BEDSIDE AND PLACED PATIENT ON BIPAP. DENIES ANY PAIN AT THIS TIME. IV ACCESS ON RIGHT FOREARM #20 INFUSING NS @ 100ML/HR. NO S/S OF INFILTRATION. BED LOCKED AND IN LOWEST POSITION. CALL LIGHT WITHIN REACH. ALL NEEDS ANTICIPATED.
[2021-09-21] MEDS: ENOXAPARIN SODIUM 40 MG/0.4 ML DISP.SYRIN SQ SCH (21:09)
--- NOTE | 2021-09-21 22:00 | NUR ---
RN NOTE PATIENT PLACED BACK ON O2 2L VIA NASAL CANNULA PER REQUEST. O2 SAT 97%. WILL CONTINUE TO MONITOR.
[2021-09-22] VITALS (23 sets, daily range): BP systolic 105–149; BP diastolic 67–99
[2021-09-22] MEDS: IV NS 0.9% 1,000 ML IV PRN (00:41)
[2021-09-22] MEDS: ALBUTEROL FS 2.5 MG/3 ML VIAL.NEB NEB SCH ×8 (02:56→22:30)
[2021-09-22] MEDS: IPRATROPIUM NEB FS 0.5 MG/2.5 ML AMPUL.NEB NEB SCH ×8 (02:56→22:30)
[2021-09-22] MEDS: methylPREDNISolone SOD SUCC 125 MG/2ML VIAL IV SCH ×3 (04:32→21:20)
[2021-09-22 04:56] LABS: HEMATOCRIT 34 % (33-45); HEMOGLOBIN 11.6 g/dL (11.5-14.8); LYMPHOCYTES # (AUTO) 0.3 K/uL (0.8-4.8); LYMPHOCYTES % (AUTO) 6.1 % (20.0-44.0); MEAN CORPUSCULAR HGB CONC 34 g/dl (31.0-36.0); MEAN CORPUSCULAR VOLUME 90 fL (82-100); MONOCYTES # (AUTO) 0.2 K/uL (0.1-1.30); MONOCYTES % (AUTO) 4.4 % (2.0-12.0); NEUTROPHILS # (AUTO) 4.3 K/uL (1.8-8.9); NEUTROPHILS % (AUTO) 89.5 % (43.0-81.0); PLATELET COUNT (AUTO) 202 K/uL (150-450); RED BLOOD CELL COUNT(AUTO) 3.82 MIL/uL (4.0-5.2); WHITE BLOOD COUNT (AUTO) 4.8 K/uL (4.3-11.0)
[2021-09-22 06:20] LABS: ALBUMIN 2.8 g/dL (3.4-5.0); BILIRUBIN,TOTAL 0.2 mg/dL (0.2-1.0); CALCIUM, SERUM 8.1 mg/dL (8.5-10.1); CREATININE 0.8 mg/dL (0.6-1.3); POTASSIUM 3.7 mmol/L (3.5-5.1); TOTAL PROTEIN, SERUM 5.9 g/dL (6.4-8.2)
--- NOTE | 2021-09-22 06:40 | NUR ---
RN NOTE PATIENT RESTING IN BED. ON O2 2L VIA NASAL CANNULA. NO SIGNIFICANT CHANGES DURING THIS SHIFT. ALL NEEDS ATTENDED PROMPTLY. IV ACCESS ON RIGHT FOREARM #20 INFUSING NS @ 100ML/HR. NO S/S OF INFILTRATION. BED LOCKED AND IN LOWEST POSITION. CALL LIGHT WITHIN REACH. WILL ENDORSE TO AM SHIFT.
[2021-09-22 06:56] LABS: LYMPHOCYTES % (MANUAL) 5 % (16-48); MONOCYTES % (MANUAL) 5 % (0-11.0); NEUTROPHILS % (MANUAL) 90 (42-76)
[2021-09-22] MEDS: PANTOPRAZOLE 40 MG TABLET.DR PO SCH (08:26)
[2021-09-22] MEDS: MONTELUKAST SODIUM (10MG) 10 MG TABLET PO SCH ×2 (09:23→21:22)
[2021-09-22] MEDS: LEVOFLOXACIN (250MG) 250 MG TABLET PO SCH (11:51)
[2021-09-22] MEDS: PAROXETINE HCL 10 MG TABLET PO SCH (13:29)
--- NOTE | 2021-09-22 19:28 | NUR ---
RN NOTE PT RESTING IN BED, CONTINUES ON O2 VIA NC @2L, PT STILL NOTED WITH MILD LABORED BREATHING AND PRODUCTIVE COUGH. PT VERBALIZED SHE IS FEELING BETTER. ALL DUE MEDS GIVEN. HAD 1 BM AND ASSISTED TO TOILET THIS SHIFT. MORNING CARE DONE. SAFETY MEASURES MAINTAINED.
--- NOTE | 2021-09-22 19:30 | NUR ---
RN NOTE RECEIVED PT IN AWAKE, AOX4. ON O2 AT 2L VIA NC. NO LABORED BREATHING NOTED. STATED SHE FEELS OK. IV ON RFA PATENT AND INTACT, FLUSHES WELL. WILL CONTINUE TO MONITOR.
[2021-09-22] MEDS: ENOXAPARIN SODIUM 40 MG/0.4 ML DISP.SYRIN SQ SCH (21:00)
[2021-09-22] MEDS: TEMAZEPAM 15 MG CAPSULE PO PRN (21:22)
--- NOTE | 2021-09-22 21:33 | NUR ---
RN NOTE PT REFUSED LOVENOX INJECTION, EXPLAINED RISKS AND BENEFITS. VERBALIZED UNDERSTANDING.
--- NOTE | 2021-09-22 22:36 | NUR ---
PT REFUSED BIPAP. PT ON 2L NC. BIPAP STAND BY.
[2021-09-23] VITALS (16 sets, daily range): BP systolic 110–138; BP diastolic 75–94
[2021-09-23] MEDS: ALBUTEROL FS 2.5 MG/3 ML VIAL.NEB NEB SCH ×5 (01:10→13:12)
[2021-09-23] MEDS: IPRATROPIUM NEB FS 0.5 MG/2.5 ML AMPUL.NEB NEB SCH ×5 (01:10→13:12)
[2021-09-23 04:09] LABS: HEMATOCRIT 33 % (33-45); HEMOGLOBIN 11.2 g/dL (11.5-14.8); LYMPHOCYTES # (AUTO) 0.4 K/uL (0.8-4.8); LYMPHOCYTES % (AUTO) 6.2 % (20.0-44.0); MEAN CORPUSCULAR HGB CONC 34 g/dl (31.0-36.0); MEAN CORPUSCULAR VOLUME 89 fL (82-100); MONOCYTES # (AUTO) 0.4 K/uL (0.1-1.30); NEUTROPHILS # (AUTO) 5.4 K/uL (1.8-8.9); NEUTROPHILS % (AUTO) 87.8 % (43.0-81.0); PLATELET COUNT (AUTO) 200 K/uL (150-450); RED BLOOD CELL COUNT(AUTO) 3.73 MIL/uL (4.0-5.2); WHITE BLOOD COUNT (AUTO) 6.2 K/uL (4.3-11.0)
[2021-09-23 04:30] LABS: ALBUMIN 2.6 g/dL (3.4-5.0); BILIRUBIN,TOTAL 0.3 mg/dL (0.2-1.0); CALCIUM, SERUM 7.9 mg/dL (8.5-10.1); CREATININE 0.7 mg/dL (0.6-1.3); POTASSIUM 4.1 mmol/L (3.5-5.1); TOTAL PROTEIN, SERUM 5.4 g/dL (6.4-8.2)
[2021-09-23] MEDS: methylPREDNISolone SOD SUCC 125 MG/2ML VIAL IV SCH ×2 (05:16→12:32)
[2021-09-23] MEDS: PANTOPRAZOLE 40 MG TABLET.DR PO SCH (06:46)
--- NOTE | 2021-09-23 07:14 | NUR ---
RN NOTE PT AWAKE, NO CHANGES IN LOC NOTED. DENIES ANY PAIN OR SOB. TOLERATING O2 AT 2L, NO BIPAP ALL NIGHT. O2 SAT AT 95%. PT COUGHING. NOTIFIED ACID PURIFIER JULIETA FISHER TO ORDER ROBITUSSIN PRN FOR COUGH. PT CONTINENT, USES BEDSIDE COMMODE. IV REMAIN PATENT AND INTACT. ENDORSED TO ARMEN DICKSON FOR JOSS.
--- NOTE | 2021-09-23 07:22 | NUR ---
RN NOTES RECEIVED PT AWAKE A/O X 4, ABLE TO DO OWN ADLs, AMBULATES ON OWN TO BEDSIDE COMMODE ASSISTED WITH TRANSFER FOR SAFETY, ON NC AT 2LPM SAT AT 96%, NO SOB, NO LABORED BREATHING NOTED, COUGHING WITH YELLOW AND WHITE PHLEGM NOTED, IV RFA G #20 INTACT PATENT FLUSHING INFUSING NS, BED IN LOWEST POSITION, WHEELS LOCKED, CALL LIGHT IN REACH.
[2021-09-23] MEDS ORDERED: GUAIFENESIN/D-METHORPHAN HB 5 ML UDC PO PRN (07:30)
[2021-09-23] MEDS: PAROXETINE HCL 10 MG TABLET PO SCH (08:04)
[2021-09-23] MEDS: MONTELUKAST SODIUM (10MG) 10 MG TABLET PO SCH (08:05)
[2021-09-23] MEDS: LEVOFLOXACIN (250MG) 250 MG TABLET PO SCH (09:37)
--- NOTE | 2021-09-23 11:03 | NUR ---
PT REQUESTED TO AMBULATE TO REST ROOM FROM ROOM TO GET SOME EXERCISE, ASSISTED PT FROM GURNEY TO RESTROOM , AMBULATED SLOWLY ENCOURAGED TO TAKE BREAKS TO BREATH TAKE TIME, COUGHING UP PHLEGM YELLOW WHITE CHUNKS NOTED, WAS ABLE TO AMBULATE TO AND FROM GURNEY TO RESTROOM WITH MINOR ASSISTANCE, 1 SMALL BM BROWN SOLID, ONE VOID YELLOW NO UNUSUAL FOUL ODOR NOTED, PT BACK IN BED REPOSITIONED , BED LOW TO FLOOR, WHEELS LOCKED IN PLACE, TELE MONITOR APPLIED, NC INTACT, B/P CUFF INTACT, WILL MONITOR ALL VS, IV SITE INTACT PATENT INFUSING NO INFILTRATION NO IRRITATION NOTED AT THIS TIME.
--- NOTE | 2021-09-23 15:21 | NUR ---
PT DEMANDS TO LEAVE AMA, EDUCATED CONSEQUENCES OF LEAVING AGAINST AMA AND STILL WISHES TO DO SO, EXPRESSED INSURANCE CARD IS , FEELS BETTER, SHOWING SOME IMPROVEMENT AT THIS TIME, STILL LOWER BODY WEAKNESS NOTED WHEN TRYING TO AMBULATE, FAMILY IS ON WAY TO PICK PT UP, PT REQUESTED [facility] [address] [place] [address] FOR PREFERRED PHARMACY PHARMACEUTICAL ASSISTANT BETH AWARE AND PT WILL LEAVE AMA ALL PAPER WORK SIGNED AND SHE IS IN AGREEMENT TO LEAVE AMA AT THIS TIME, IV REMOVED NO SIGNIFICANT S/S OF BLEEDING, PT IN STABLE CONDITION AT THIS TIME.
[2021-09-23] MEDS ORDERED: METH4TAB3 PO (15:39)
[2021-09-23] MEDS ORDERED: PARO10TA86 PO (15:39)
[2021-09-23] MEDS ORDERED: ALBU0.633 NEB (15:39)
[2021-09-23] MEDS ORDERED: ALBU6.7H9 INH (15:39)
== END 2021-09-23 17:52 | disposition left against medical advice (07) | DRG 141 ==
LOC: ER 23:11 → ICU 09-17 02:21 → MEDSG1 09-17 16:37 → TELE1 09-19 17:17 → ICU 09-19 18:07
PROVIDERS: ADMIT Nurse Practitioner Acute Care; ATTEND Nurse Practitioner Family
PROC: 5A09457 Assistance with Respiratory Ventilation, 24-96 Consecutive Hours, Continuous Positive Airway Pressure (ICD-10-PCS; principal; 2021-09-19)
DX: J45.902 Unspecified asthma with status asthmaticus (principal); J96.01 Acute respiratory failure with hypoxia; J96.02 Acute respiratory failure with hypercapnia; E87.2 Acidosis; E87.5 Hyperkalemia; E86.0 Dehydration; Z20.822 Contact with and (suspected) exposure to COVID-19; Z79.899 Other long term (current) drug therapy; Z79.51 Long term (current) use of inhaled steroids; Z79.01 Long term (current) use of anticoagulants; D72.829 Elevated white blood cell count, unspecified; F17.210 Nicotine dependence, cigarettes, uncomplicated; F41.9 Anxiety disorder, unspecified
CPT/HCPCS: 36415; 36600; 70220-TC; 71045-TC; 80048-TC; 80053-TC; 80076-TC; 82803-TC; 82962-TC; 83605-TC; 83735-TC; 83880; 84100-TC; 84439-TC; 84443-TC; 84481; 84484-TC; 85025-TC; 85378-TC; 87040-TC; 87081-TC; 94660; 94760-TC; 94799-TC; 99082-TC; C9803; G0378; J0171; J1650; J2930; J3105; J3475; J7030; J7040; J7050

== ENCOUNTER 2022-04-17 21:32 | Emergency (ER) | payer MEDICAID ==
[~2022-04-17] VITALS: Ht 175.3 cm; Wt 64.0 kg
[~2022-04-17 21:32] MED LIST changes: +ALBU0.633 NEB; +ALBU6.7H9 INH; +ALBU90AE2 INH; +FLUT12AE3 INH; +METH4TAB3 PO; +MONT10TA22 PO; +PARO10TA86 PO
[2022-04-17] MEDS ORDERED: predniSONE 20 MG TABLET ONE (21:54)
[2022-04-17] MEDS: predniSONE 20 MG TABLET PO ONE (21:56)
[2022-04-17] MEDS: ALBUTEROL FS 2.5 MG/3 ML VIAL.NEB NEB ONE ×2 (21:57→23:23)
[2022-04-17] MEDS: IPRATROPIUM NEB FS 0.5 MG/2.5 ML AMPUL.NEB NEB ONE ×2 (21:57→23:22)
--- NOTE | 2022-04-17 21:58 | NUR ---
PATIENT BIBDAUGHTER C/O ASTHMA EXACERBATION X 3 WEEKS. PATIENT IS A DAILY SMOKER. PATIENT IS A/O X 4 RR EVEN, NO SOB NOTED. NO ACUTE DISTRESS NOTED. PATIENT AFEBRILE. VSS. WILL CONTINUE TO MONITOR.
--- NOTE | 2022-04-17 21:59 | NUR ---
RT AT BEDSIDE
[2022-04-17] MEDS ORDERED: IPRATROPIUM NEB FS 0.5 MG/2.5 ML AMPUL.NEB ONE ×2 (22:00→23:25)
[2022-04-17] MEDS ORDERED: ALBUTEROL FS 2.5 MG/3 ML VIAL.NEB ONE ×2 (22:00→23:25)
[2022-04-18] MEDS ORDERED: ALBU2.5V38 NEB (00:25)
[2022-04-18] MEDS ORDERED: ALBU18HF2 INH (00:25)
[2022-04-18] MEDS ORDERED: PRED50TA PO (00:26)
[2022-04-18 00:40] VITALS: BP 111/72
== END 2022-04-18 00:41 | disposition home or self-care (01) ==
LOC: ER 21:35
DX: J45.901 Unspecified asthma with (acute) exacerbation (principal); F17.210 Nicotine dependence, cigarettes, uncomplicated; J45.909 Unspecified asthma, uncomplicated; Z79.899 Other long term (current) drug therapy
CPT/HCPCS: 99285; 71045; 99406; 94640; 94644; J7512

== ENCOUNTER 2022-05-14 12:34 | Emergency (ER) | payer MEDICAID ==
[~2022-05-14] VITALS: Ht 175.3 cm; Wt 64.0 kg
[~2022-05-14 12:34] MED LIST changes: +ALBU18HF2 INH; +ALBU2.5V38 NEB; +PRED50TA PO
--- NOTE | 2022-05-14 14:35 | NUR ---
WORSENING SOB X COUPLE OF DAYS. HX OF ASTHMA.
[2022-05-14] MEDS ORDERED: ALBUTEROL FS 2.5 MG/3 ML VIAL.NEB ONE ×5 (14:56→21:31)
[2022-05-14] MEDS ORDERED: IPRATROPIUM NEB FS 0.5 MG/2.5 ML AMPUL.NEB ONE ×3 (14:56→21:31)
[2022-05-14] MEDS ORDERED: predniSONE 20 MG TABLET PO ONE (15:00)
[2022-05-14] MEDS ORDERED: IPRATROPIUM NEB FS 0.5 MG/2.5 ML AMPUL.NEB NEB ONE ×2 (15:00→21:30)
[2022-05-14] MEDS ORDERED: ALBUTEROL FS 2.5 MG/3 ML VIAL.NEB CONTNEB ONE ×3 (15:00→21:30)
[2022-05-14] MEDS ORDERED: predniSONE 20 MG TABLET ONE (15:31)
--- NOTE | 2022-05-14 17:21 | NUR ---
RT NOTE 7.5 MG OF ALBUTEROL GIVEN PER MD ORDERS. Addendum: 05/14/22 at 1722 by SRINIVAS STAPLES RT Amended: Links added.
[2022-05-14] MEDS ORDERED: ALBUTEROL FS 2.5 MG/3 ML VIAL.NEB NEB ONE (18:00)
[2022-05-14] MEDS ORDERED: Magnesium 1GM/D5W 100ML PREMIX 200 ML IV ONE (18:00)
[2022-05-14] MEDS ORDERED: Magnesium 1GM/D5W 100ML PREMIX 100 ML IV ONE ×2 (18:09→19:35)
--- NOTE | 2022-05-14 18:34 | NUR ---
DR PEDRO CALLED, REQUESTING CLINICALS BEFORE PEER TO PEER.
--- NOTE | 2022-05-14 18:37 | NUR ---
CONTACT NUMBER FOR GOPAL HUNT MD. [phone]
[2022-05-14 19:20] LABS: ALANINE AMINOTRANSFERASE 21 U/L (12-78); ALBUMIN 3.8 g/dL (3.4-5.0); ALKALINE PHOSPHATASE 81 U/L (46-116); ASPARTATE AMINOTRANSFERASE 19 U/L (15-37); BILIRUBIN,DIRECT 0.1 mg/dL (0.0-0.2); BILIRUBIN,TOTAL 0.3 mg/dL (0.2-1.0); CALCIUM, SERUM 8.8 mg/dL (8.5-10.1); CARBON DIOXIDE 27 mmol/L (21-32); CHLORIDE 103 mmol/L (98-107); CREATININE 0.9 mg/dL (0.6-1.3); GLUCOSE 123 mg/dL (74-106); SODIUM SERUM 140 mmol/L (136-145); TOTAL PROTEIN, SERUM 7.5 g/dL (6.4-8.2); UREA NITROGEN, BLOOD 12 mg/dL (7-18)
--- NOTE | 2022-05-14 19:30 | NUR ---
RECEIVED PATIENT IN BED. AAOX4. ABLE TO MAKE NEEDS KNOWN. WITH O2 INH AT 2LPM SATS 92%. PATIENT HAS IV INGRID ON LEFT FA G20. RUNNING IS MG SO4 AND IVF. PATIENT IS ATTACHED TO MONITOR. VITALS CHECKED.
[2022-05-14 19:47] LABS: BASOPHILS % (AUTO) 0.2 % (0.0-2.0); EOSINOPHILS % (AUTO) 2.5 % (0.0-6.0); HEMATOCRIT 41 % (33-45); HEMOGLOBIN 13.7 g/dL (11.5-14.8); LYMPHOCYTES # (AUTO) 0.5 K/uL (0.8-4.8); MEAN CORPUSCULAR HGB CONC 34 g/dl (31.0-36.0); MEAN CORPUSCULAR VOLUME 88 fL (82-100); MONOCYTES # (AUTO) 0.2 K/uL (0.1-1.30); MONOCYTES % (AUTO) 2.7 % (2.0-12.0); NEUTROPHILS # (AUTO) 5.8 K/uL (1.8-8.9); NEUTROPHILS % (AUTO) 86.6 % (43.0-81.0); PLATELET COUNT (AUTO) 336 K/uL (150-450); RED BLOOD CELL COUNT(AUTO) 4.61 MIL/uL (4.0-5.2); WHITE BLOOD COUNT (AUTO) 6.8 K/uL (4.3-11.0)
--- NOTE | 2022-05-14 19:49 | NUR ---
2ND BAG OF MG SO4 1GM STARTED.
--- NOTE | 2022-05-14 20:04 | NUR ---
CLINICALS FAXED TO [facility]
--- NOTE | 2022-05-14 20:29 | NUR ---
KIRTI ZAPATA ON PHONE CALL WITH [facility]
--- NOTE | 2022-05-15 00:31 | NUR ---
PATIENT IS ASLEEP BUT AROUSABLE. VITALS RECHECKED.
--- NOTE | 2022-05-15 02:59 | NUR ---
PATIENT IS AWAKE. FELT MUCH BETTER. NEEDS ATTENDED
--- NOTE | 2022-05-15 03:00 | NUR ---
CALLED CM FOR [facility] FOR FOLLOW UP
--- NOTE | 2022-05-15 04:00 | NUR ---
AUTH FOR TRANSPORT #[id number]
--- NOTE | 2022-05-15 05:27 | NUR ---
[facility] ROOM [id number] REPORT [phone]
--- NOTE | 2022-05-15 05:36 | NUR ---
CALLED [facility] FOR TRANSPORTATION ETA IS 10AM
--- NOTE | 2022-05-15 05:47 | NUR ---
PATIENT WAS ASKING FOR HOT TEA. APPROVED. HOT TEA PROVIDED.
--- NOTE | 2022-05-15 07:13 | NUR ---
REPORT GIVEN TO YESSI BETH
[2022-05-15] MEDS ORDERED: methylPREDNISolone SOD SUCC 125 MG/2ML VIAL ONE (07:25)
[2022-05-15] MEDS ORDERED: methylPREDNISolone SOD SUCC 125 MG/2ML VIAL IV ONE (07:30)
[2022-05-15] MEDS ORDERED: ALBUTEROL FS 2.5 MG/0.5 ML VIAL.NEB NEB ONE (07:30)
[2022-05-15] MEDS ORDERED: IPRATROPIUM NEB FS 0.5 MG/2.5 ML AMPUL.NEB NEB ONE (07:30)
[2022-05-15] MEDS ORDERED: ALBUTEROL FS 2.5 MG/3 ML VIAL.NEB ONE (08:09)
[2022-05-15] MEDS ORDERED: IPRATROPIUM NEB FS 0.5 MG/2.5 ML AMPUL.NEB ONE (08:09)
[2022-05-15 08:28] VITALS: BP 127/64
--- NOTE | 2022-05-15 08:33 | NUR ---
CALLED [facility] TO GIVE REPORT [phone]. RECEIVING NURSE UNAVAILABLE AT THIS TIME AND WILL RETURN CALL
--- NOTE | 2022-05-15 08:45 | NUR ---
RECEIVED RETURN CALL FROM YESSI CASTILLO FROM [facility] [employer] [phone] REPORT GIVEN
== END 2022-05-15 11:15 | disposition short-term general hospital (02) ==
LOC: ER 12:40
DX: J45.901 Unspecified asthma with (acute) exacerbation (principal); Z20.822 Contact with and (suspected) exposure to COVID-19
CPT/HCPCS: 99291; 96365; 96366; 87426; 93005; 71045; 85025; 80048; 80076; 36415; 84484; 87081; 83880; 94644; 96374; 94645; J7512; J7040; J3475 ×2; C9803; J2930

== ENCOUNTER 2022-07-23 01:12 | Emergency (ER) | payer MEDICAID ==
[~2022-07-23] VITALS: Ht 175.3 cm; Wt 64.0 kg
[2022-07-23] MEDS ORDERED: IPRATROPIUM NEB FS 0.5 MG/2.5 ML AMPUL.NEB ONE (01:29)
[2022-07-23] MEDS ORDERED: ALBUTEROL FS 2.5 MG/3 ML VIAL.NEB ONE ×2 (01:29→09:14)
[2022-07-23] MEDS ORDERED: IPRATROPIUM NEB FS 0.5 MG/2.5 ML AMPUL.NEB NEB ONE (01:30)
[2022-07-23] MEDS ORDERED: methylPREDNISolone SOD SUCC 125 MG/2ML VIAL IV ONE (01:30)
[2022-07-23] MEDS ORDERED: ALBUTEROL FS 2.5 MG/3 ML VIAL.NEB CONTNEB ONE (01:30)
[2022-07-23] MEDS ORDERED: Magnesium 1GM/D5W 100ML PREMIX 200 ML IV ONE (01:30)
[2022-07-23] MEDS ORDERED: methylPREDNISolone SOD SUCC 125 MG/2ML VIAL ONE (01:31)
[2022-07-23] MEDS ORDERED: Magnesium 1GM/D5W 100ML PREMIX 100 ML IV ONE (01:31)
[2022-07-23 01:56] LABS: BASOPHILS % (AUTO) 0.5 % (0.0-2.0); EOSINOPHILS % (AUTO) 14.2 % (0.0-6.0); HEMATOCRIT 42 % (33-45); HEMOGLOBIN 13.8 g/dL (11.5-14.8); LYMPHOCYTES # (AUTO) 1.2 K/uL (0.8-4.8); LYMPHOCYTES % (AUTO) 12.3 % (20.0-44.0); MEAN CORPUSCULAR HGB CONC 33 g/dl (31.0-36.0); MEAN CORPUSCULAR VOLUME 89 fL (82-100); MONOCYTES # (AUTO) 0.3 K/uL (0.1-1.30); MONOCYTES % (AUTO) 3.2 % (2.0-12.0); NEUTROPHILS # (AUTO) 6.7 K/uL (1.8-8.9); NEUTROPHILS % (AUTO) 69.8 % (43.0-81.0); PLATELET COUNT (AUTO) 299 K/uL (150-450); RED BLOOD CELL COUNT(AUTO) 4.69 MIL/uL (4.0-5.2); WHITE BLOOD COUNT (AUTO) 9.6 K/uL (4.3-11.0)
[2022-07-23 02:06] LABS: CALCIUM, SERUM 9.4 mg/dL (8.5-10.1); CARBON DIOXIDE 32 mmol/L (21-32); CHLORIDE 105 mmol/L (98-107); CREATININE 0.9 mg/dL (0.6-1.3); GLUCOSE 142 mg/dL (74-106); POTASSIUM 3.9 mmol/L (3.5-5.1); SODIUM SERUM 142 mmol/L (136-145); UREA NITROGEN, BLOOD 15 mg/dL (7-18)
[2022-07-23 02:19] LABS: ALANINE AMINOTRANSFERASE 23 U/L (12-78); ALBUMIN 4.3 g/dL (3.4-5.0); ALKALINE PHOSPHATASE 119 U/L (46-116); ASPARTATE AMINOTRANSFERASE 19 U/L (15-37); BILIRUBIN,DIRECT 0.1 mg/dL (0.0-0.2); BILIRUBIN,TOTAL 0.3 mg/dL (0.2-1.0); TOTAL PROTEIN, SERUM 8.2 g/dL (6.4-8.2)
--- NOTE | 2022-07-23 04:33 | NUR ---
COVID SWAB DONE AND SENT TO LAB
--- NOTE | 2022-07-23 05:35 | NUR ---
DR BOOTH ON PHONE WITH DR MICHELE FOR PEER TO PEER
--- NOTE | 2022-07-23 06:40 | NUR ---
TRANSPORT AUTH # [id number]
--- NOTE | 2022-07-23 07:10 | NUR ---
[facility]ON [facility]LLER PHONE #- [phone] FAX #- [phone]
--- NOTE | 2022-07-23 07:53 | NUR ---
PT ACCEPTED AT [facility] UNDER DR. ROBISON AT ROOM 624. NUMBER FOR REPORT IS [phone]
--- NOTE | 2022-07-23 08:06 | NUR ---
SET UP [facility]SPORT WITH [facility]EV[facility] IS 1 HOUR
--- NOTE | 2022-07-23 08:32 | NUR ---
REPORT GIVEN TO RECEIVING NURSE IN [facility]
--- NOTE | 2022-07-23 09:10 | NUR ---
RT AT BEDISIDE FOR BREATHING TX BEFORE TRANSFER
--- NOTE | 2022-07-23 09:28 | NUR ---
[facility] AT BEDSIDE FOR PICKUP, REPORT GIVEN
[2022-07-23] MEDS ORDERED: ALBUTEROL FS 2.5 MG/3 ML VIAL.NEB NEB ONE (09:30)
[2022-07-23 09:47] VITALS: BP 131/71
== END 2022-07-23 09:48 | disposition short-term general hospital (02) ==
LOC: ER 01:16
DX: J45.901 Unspecified asthma with (acute) exacerbation (principal); R09.02 Hypoxemia; F17.200 Nicotine dependence, unspecified, uncomplicated; Z20.822 Contact with and (suspected) exposure to COVID-19; Z79.51 Long term (current) use of inhaled steroids; Z79.899 Other long term (current) drug therapy
CPT/HCPCS: 99291; 96365; 96375; 87426; 93005; 71045; 85025; 80048; 80076; 36415; 84484; 83880; 94640; 94644; J2930; A4223; J3475; C9803

== ENCOUNTER 2022-09-09 21:11 | Emergency (ER) | payer MEDICAID ==
[~2022-09-09] VITALS: Ht 175.3 cm; Wt 67.6 kg
--- NOTE | 2022-09-09 22:00 | NUR ---
BIBDAUGHTER FROM HOME, CC LAC ON LT FOREHEAD 1.5CM AFTER GLF 7PM, +ALCO INTOXICATION. +N/V
--- NOTE | 2022-09-09 22:39 | NUR ---
PT TAKEN TO CT
--- NOTE | 2022-09-09 22:49 | NUR ---
PT RETURNED FROM CT
--- NOTE | 2022-09-09 23:20 | NUR ---
DR. BOOTH AT [facility]
[2022-09-10 00:18] VITALS: BP 95/65
== END 2022-09-10 00:19 | disposition home or self-care (01) ==
LOC: ER 21:13
DX: S01.81XA Laceration without foreign body of other part of head, initial encounter (principal); F10.129 Alcohol abuse with intoxication, unspecified; J45.909 Unspecified asthma, uncomplicated; F17.200 Nicotine dependence, unspecified, uncomplicated; Z79.899 Other long term (current) drug therapy; W18.30XA Fall on same level, unspecified, initial encounter; Y93.89 Activity, other specified; Y92.89 Other specified places as the place of occurrence of the external cause; Y99.8 Other external cause status; Y90.9 Presence of alcohol in blood, level not specified
CPT/HCPCS: 99284; 72125; 12011; 70450; 70486; A6403

== ENCOUNTER 2023-07-15 18:33 | Emergency (ER) | payer MEDICAID ==
[~2023-07-15] VITALS: Ht 175.3 cm; Wt 70.3 kg
[2023-07-15] MEDS ORDERED: methylPREDNISolone SOD SUCC 125 MG/2ML VIAL ONE (19:00)
[2023-07-15] MEDS: methylPREDNISolone SOD SUCC 125 MG/2ML VIAL IV ONE (19:00)
[2023-07-15] MEDS: Magnesium 1GM/D5W 100ML PREMIX 200 ML IV ONE (19:00)
[2023-07-15] MEDS: IV NS 0.9% 1,000 ML BAG IV ONE (19:00)
[2023-07-15] MEDS ORDERED: Magnesium 1GM/D5W 100ML PREMIX 100 ML IV ONE (19:01)
[2023-07-15] MEDS ORDERED: IPRATROPIUM NEB FS 0.5 MG/2.5 ML AMPUL.NEB ONE ×2 (19:07→21:12)
[2023-07-15] MEDS ORDERED: ALBUTEROL FS 2.5 MG/3 ML VIAL.NEB ONE ×2 (19:07→21:12)
[2023-07-15 19:09] VITALS: O2SAT 94
[2023-07-15] MEDS: ALBUTEROL FS 2.5 MG/3 ML VIAL.NEB NEB ONE ×2 (19:12→21:15)
[2023-07-15] MEDS: IPRATROPIUM NEB FS 0.5 MG/2.5 ML AMPUL.NEB NEB ONE ×2 (19:12→21:15)
[2023-07-15 19:24] VITALS: O2SAT 99
[2023-07-15] MEDS ORDERED: PRED50TA PO (21:05)
[2023-07-15] MEDS ORDERED: TIOT18CA3 INH (21:05)
[2023-07-15 21:15] VITALS: O2SAT 95
[2023-07-15 21:31] VITALS: O2SAT 99
[2023-07-15 21:36] VITALS: BP 121/60; TEMP 98.5; O2SAT 99
== END 2023-07-15 21:37 | disposition home or self-care (01) ==
LOC: ER 18:45
DX: J45.901 Unspecified asthma with (acute) exacerbation (principal); F17.200 Nicotine dependence, unspecified, uncomplicated; Z79.899 Other long term (current) drug therapy
CPT/HCPCS: 99285; 96365; 96375; 94640 ×2; J2930; A4223; J3475

== ENCOUNTER 2023-08-28 23:05 | Emergency (ER) | payer MEDICAID ==
[~2023-08-28] VITALS: Ht 170.2 cm; Wt 72.6 kg
[~2023-08-28 23:05] MED LIST changes: +TIOT18CA3 INH
[2023-08-28] MEDS ORDERED: methylPREDNISolone SOD SUCC 125 MG/2ML VIAL ONE (23:50)
[2023-08-28 23:59] VITALS: O2SAT 95
[2023-08-28] MEDS: ALBUTEROL FS 2.5 MG/3 ML VIAL.NEB NEB ONE (23:59)
[2023-08-29] MEDS ORDERED: ALBUTEROL FS 2.5 MG/3 ML VIAL.NEB ONE ×2 (00:01→01:47)
[2023-08-29] MEDS: methylPREDNISolone SOD SUCC 125 MG/2ML VIAL IV ONE (00:05)
[2023-08-29 00:13] LABS: BASOPHILS # (AUTO) 0.1 K/uL (0.0-0.2); BASOPHILS % (AUTO) 0.9 % (0.0-2.0); EOSINOPHILS # (AUTO) 0.4 K/uL (0.0-0.7); EOSINOPHILS % (AUTO) 6.8 % (0.0-6.0); HEMATOCRIT 38 % (33-45); HEMOGLOBIN 12.8 g/dL (11.5-14.8); MEAN CORPUSCULAR HEMOGLOBIN 30 PG (26.0-33.0); MEAN CORPUSCULAR HGB CONC 34 g/dl (31.0-36.0); MEAN CORPUSCULAR VOLUME 87 fL (82-100); MONOCYTES # (AUTO) 0.5 K/uL (0.1-1.30); MONOCYTES % (AUTO) 7.5 % (2.0-12.0); NEUTROPHILS # (AUTO) 3.5 K/uL (1.8-8.9); NEUTROPHILS % (AUTO) 53.8 % (43.0-81.0); PLATELET COUNT (AUTO) 262 K/uL (150-450); RED BLOOD CELL COUNT(AUTO) 4.34 MIL/uL (4.0-5.2); RED CELL DISTRIBUTION WIDTH 13.4 % (11.5-15.0); WHITE BLOOD COUNT (AUTO) 6.6 K/uL (4.3-11.0)
[2023-08-29 00:14] VITALS: O2SAT 98
[2023-08-29 00:30] LABS: CREATININE 1.1 mg/dL (0.6-1.3); POTASSIUM 3.8 mmol/L (3.5-5.1)
[2023-08-29 01:21] LABS: ALBUMIN 3.3 g/dL (3.4-5.0); BILIRUBIN,TOTAL 0.3 mg/dL (0.2-1.0)
[2023-08-29] MEDS ORDERED: PRED20TA PO (01:39)
[2023-08-29 01:45] VITALS: O2SAT 96
[2023-08-29] MEDS: ALBUTEROL FS 2.5 MG/3 ML VIAL.NEB NEB ONE (01:45)
[2023-08-29 02:00] VITALS: O2SAT 99
[2023-08-29 02:23] VITALS: BP 111/80; TEMP 98.8; O2SAT 99
== END 2023-08-29 02:24 | disposition home or self-care (01) ==
LOC: ER 23:07
DX: J45.901 Unspecified asthma with (acute) exacerbation (principal); F17.200 Nicotine dependence, unspecified, uncomplicated; F10.10 Alcohol abuse, uncomplicated
CPT/HCPCS: 99285; 93005; 71045; 85025; 83605; 36415; 80053; 84484; 83880; 96374; 94640 ×2; J2930